=== PATIENT | female | born 1955 | race Caucasian/White ===

== ENCOUNTER 2017-11-07 18:30 | Emergency (ER) | payer BC ==
[2017-11-07 19:07] VITALS: BP 150/82
--- NOTE | 2017-11-07 19:37 | RAD ---
INDICATION: Cough COMPARISON: None TECHNIQUE: PA and lateral dual-energy views were obtained. FINDINGS: Bones/Soft Tissues: There are no acute bony findings. There is osteopenia with kyphosis Cardiomediastinal: The cardiomediastinal silhouette is normal. Lungs: There are no infiltrates. Pleura: There are no pleural effusions. Other: There is partial eventration of the right hemidiaphragm. IMPRESSION: NO ACTIVE DISEASE.
--- NOTE | 2017-11-07 19:55 | UC ---
Respiratory Complaint HPI - HPI Summary HPI Summary: 62 yo female with DM who presents with c/o [address], cough and body aches. She as felt feverish intermittently. Cough is productive. No CP, n/v. had similar symptoms 10d ago which resolved after a course of amoxicillin. - History of Current Complaint Chief Complaint: UCRespiratory Stated Complaint: SORE THROAT Pain Intensity: 5 - Allergies/Home Medications Allergies/Adverse Reactions: Allergies Allergy/AdvReac Type Severity Reaction Status Date / Time Penicillins Allergy Unknown Unknown Verified 11/07/17 19:07 Reaction Details Home Medications: Home Medications Fluoxetine HCl [Prozac] 10 mg PO DAILY 11/07/17 [History Confirmed 11/07/17] Hydrochlorothiazide TAB* [Hydrodiuril TAB*] 12.5 mg PO DAILY 11/07/17 [History Confirmed 11/07/17] Verapamil HCl [Verapamil ER] 240 mg PO DAILY 11/07/17 [History Confirmed ] metFORMIN* [Glucophage 500 MG TAB *] 500 mg PO DAILY 11/07/17 [History Confirmed 11/07/17] PMH/Surg Hx/FS Hx/Imm Hx Endocrine History: Diabetes - Surgical History Surgical History: Yes Surgery Procedure, Year, and Place: HYSTERECTOMY, CHOLECYSTECTOMY - Family History Known Family History: Positive: Diabetes - Social History Alcohol Use: None Substance Use Type: None Smoking Status (MU): Never Smoked Tobacco Review of Systems Constitutional: Fever, Chills Skin: Negative Eyes: Negative ENT: Sore Throat Respiratory: Cough Cardiovascular: Negative Gastrointestinal: Negative Genitourinary: Negative Motor: Negative Neurovascular: Negative Musculoskeletal: Negative Neurological: Negative Psychological: Negative Is Patient Immunocompromised?: No All Other Systems Reviewed And Are Negative: Yes Physical Exam Triage Information Reviewed: Yes Appearance: Well-Appearing Vital Signs: Initial Vital Signs Temp 97.5 F 11/07/17 19:02 Pulse 91 11/07/17 19:02 Resp 18 11/07/17 19:02 BP 150/82 11/07/17 19:02 Pulse Ox 95 11/07/17 19:02 Vital Signs Reviewed: Yes ENT: Positive: Pharyngeal erythema, Tonsillar swelling. Negative: Tonsillar exudate Neck: Positive: Enlarged Nodes @ - anterior cervical LAD Respiratory: Positive: Lungs clear, Normal breath sounds Cardiovascular: Positive: RRR, No Murmur Abdomen Description: Positive: Nontender Musculoskeletal Exam: Normal Neurological Exam: Normal Psychological Exam: Normal Skin Exam: Normal UC Diagnostic Evaluation - Laboratory O2 Sat by Pulse Oximetry: 95 Diagnostic Studies Comment: CXR - NAD Respiratory Course/Dx - Course Course Of Treatment: 62 yo female with 1 week of cough, ST and body aches. Influenza testing negative. CXR shows no infiltrate. Due to length of symptoms , empirically treat with Zpak. - Differential Dx/Diagnosis Differential Diagnosis/HQI/PQRI: Bronchitis, Influenza, Laryngitis Provider Diagnoses: Pharyngitis Discharge - Sign-Out/Discharge Documenting (check all that apply): Discharge/Admit/Transfer - Discharge Plan Condition: Stable Disposition: HOME Prescriptions: Azithromyxin MOHAMUD (NF) [Z-Mohamud (Zithromax) 250 mg tabs #6] 2 tab PO .TODAY, THEN 1 DAILY #6 tab Patient Education Materials: Pharyngitis (ED) Referrals: No Primary Care Phys,NOPCP [Primary Care Provider] - Additional Instructions: Instructions: 1. Take antibiotics as directed 2. May use over the counter decongestants to help with symptoms - Billing Disposition and Condition Condition: STABLE Disposition: HOME
== END 2017-11-07 20:00 | disposition home or self-care (01) ==
LOC: UCEAST 18:30
DX: J02.9 Acute pharyngitis, unspecified (principal); R05 Cough; M79.1 Myalgia; R50.9 Fever, unspecified; Z88.0 Allergy status to penicillin; E11.9 Type 2 diabetes mellitus without complications; Z79.84 Long term (current) use of oral hypoglycemic drugs
CPT/HCPCS: 71046; 87502; 99202; G0463

== ENCOUNTER 2017-12-08 10:12 | Emergency (ER) | payer BC ==
[2017-12-08 10:22] VITALS: BP 152/80
--- NOTE | 2017-12-08 10:39 | ED ---
Skin Complaint - HPI Summary HPI Summary: 62-year-old female presents with rash for the past 2 weeks. The rash is located in left side of her groin. She's never had this rash before. She denies any new products or soaps since. She denies any fevers. She denies any spreading redness. She denies any chills or fatigue. She states the rash has grown a little. She swims twice a week at the [facility]. She lives in the [facility] but denies any recent exposures. She is DM. - History of Current Complaint Pain Intensity: 0 <Radha Thibodeaux - Last Filed: 12/08/17 11:05> <Esther López - Last Filed: 12/08/17 13:45> - History of Current Complaint Chief Complaint: UCSkin Time Seen by Provider: 12/08/17 10:28 Stated Complaint: RASH - Allergy/Home Medications Allergies/Adverse Reactions: Allergies Allergy/AdvReac Type Severity Reaction Status Date / Time Penicillins Allergy Unknown Unknown Verified 12/08/17 10:23 Reaction Details PMH/Surg Hx/FS Hx/Imm Hx Endocrine/Hematology History: Reports: Hx Diabetes Cardiovascular History: Reports: Hx Hypertension - Surgical History Surgery Procedure, Year, and Place: HYSTERECTOMY, CHOLECYSTECTOMY Infectious Disease History: No Infectious Disease History: Denies: Traveled Outside the [place] in Last 30 Days - Family History Known Family History: Positive: Diabetes - Social History Alcohol Use: None Substance Use Type: Reports: None Hx Tobacco Use: No Smoking Status (MU): Never Smoked Tobacco <Radha Thibodeaux - Last Filed: 12/08/17 11:05> Review of Systems Negative: Fever Negative: Chest Pain Negative: Shortness Of Breath Positive: Rash All Other Systems Reviewed And Are Negative: Yes <Radha Thibodeaux - Last Filed: 12/08/17 11:05> Physical Exam Triage Information Reviewed: Yes Vital Signs On Initial Exam: Initial Vitals Temp Pulse Resp BP Pulse Ox 98 F 84 18 152/80 99 12/08/17 10:20 12/08/17 10:20 12/08/17 10:20 12/08/17 10:20 12/08/17 10:20 Vital Signs Reviewed: Yes Appearance: Positive: Well-Appearing Skin: Positive: Warm, Dry, Other - Erythematous rash with scaling to left groin Head/Face: Positive: Normal Head/Face Inspection Eyes: Positive: Normal, Conjunctiva Clear ENT: Positive: Pharynx normal Respiratory/Lung Sounds: Positive: Clear to Auscultation, Breath Sounds Present Cardiovascular: Positive: Normal, RRR Abdomen Description: Positive: Nontender, Soft Bowel Sounds: Positive: Present Musculoskeletal: Positive: Normal Neurological: Positive: Normal Psychiatric: Positive: Normal <Radha Thibodeaux - Last Filed: 12/08/17 11:05> Vital Signs On Initial Exam: Initial Vitals Temp Pulse Resp BP Pulse Ox 98 F 84 18 152/80 99 12/08/17 10:20 12/08/17 10:20 12/08/17 10:20 12/08/17 10:20 12/08/17 10:20 <Esther López - Last Filed: 12/08/17 13:45> Diagnostics - Vital Signs Vital Signs Temp Pulse Resp BP Pulse Ox 12/08/17 10:20 98 F 84 18 152/80 99 <Radha Thibodeaux - Last Filed: 12/08/17 11:05> - Vital Signs Vital Signs Temp Pulse Resp BP Pulse Ox 12/08/17 10:20 98 F 84 18 152/80 99 <Esther López - Last Filed: 12/08/17 13:45> Course/Dx - Course Course Of Treatment: 62-year-old female presents with rash for the past 2 weeks. The rash is located in left side of her groin. She's never had this rash before. She denies any new products or soaps since. She denies any fevers. She denies any spreading redness. She denies any chills or fatigue. She states the rash has grown a little. She swims twice a week at the [facility]. She lives in the [facility] but denies any recent exposures. on exam has erythematous rash with scaling to left groin. most consistent with a tinea. will have treat with clomitrazole. patient blood pressure is in hypertensive range and has dx of such so will have follow up with primary for continue management. patient understand and agrees with plan. - Differential Diagnoses - Skin Complaint Differential Diagnoses: Cellulitis, Contact Dermatitis, Tinea <Radha Thibodeaux - Last Filed: 12/08/17 11:05> <Esther López - Last Filed: 12/08/17 13:45> - Diagnoses Provider Diagnoses: Rash, Hypertension Discharge - Sign-Out/Discharge Documenting (check all that apply): Discharge/Admit/Transfer - Billing Disposition and Condition Condition: GOOD Disposition: Home <Radha Thibodeaux - Last Filed: 12/08/17 11:05> - Billing Disposition and Condition Condition: GOOD Disposition: Home <Esther López - Last Filed: 12/08/17 13:45> - Discharge Plan Condition: Good Disposition: HOME Prescriptions: Clotrimazole 1% CREAM* [Clotrimazole 1%*] 1 applic TOPICAL BID #1 tube Patient Education Materials: Tinea Corporis (ED) Referrals: [facility] [Outside] Additional Instructions: Apply cream twice a day until rash clears Take benadryl every 6 hours as needed for itching Establish care with primary Return to ED if develop any new or worsening symptoms Attestation Statement User Type: Provider - I was available for consult. This patient was seen by the JEANNINE. The patient was not presented to, seen by, or examined by me. -Simon <Esther López - Last Filed: 12/08/17 13:45>
== END 2017-12-08 10:45 | disposition home or self-care (01) ==
LOC: UCEAST 10:12
DX: R21 Rash and other nonspecific skin eruption (principal); E11.9 Type 2 diabetes mellitus without complications; I10 Essential (primary) hypertension; Z88.0 Allergy status to penicillin
CPT/HCPCS: 99212; G0463

== ENCOUNTER 2019-04-08 15:02 | Emergency (ER) | payer BC ==
[2019-04-08 15:12] VITALS: BP 144/86
--- NOTE | 2019-04-08 15:14 | UC ---
Respiratory Complaint HPI - HPI Summary HPI Summary: 63 yo female presents with cough. She tells me that about 12 days ago she developed "cold symptoms" that consisted of sinus congestion, sore throat, and dry cough. She rested and took OTC zinc and her symptoms improved, but her cough remains. She denies fever, chills, SOB, chest pain, n/v. She does not smoke. - History of Current Complaint Chief Complaint: UCRespiratory Stated Complaint: COUGH Time Seen by Provider: 04/08/19 15:14 Hx Obtained From: Patient Severity Initially: Moderate Severity Currently: Mild Pain Intensity: 4 Pain Scale Used: 0-10 Numeric Character: Cough: Nonproductive - Allergies/Home Medications Allergies/Adverse Reactions: Allergies Allergy/AdvReac Type Severity Reaction Status Date / Time Penicillins Allergy Unknown Unknown Verified 04/08/19 15:12 Reaction Details PMH/Surg Hx/FS Hx/Imm Hx Endocrine History: Diabetes Cardiovascular History: Hypertension - Surgical History Surgical History: Yes Surgery Procedure, Year, and Place: HYSTERECTOMY, CHOLECYSTECTOMY - Family History Known Family History: Positive: Diabetes - Social History Lives: With Family Alcohol Use: None Substance Use Type: None Smoking Status (MU): Never Smoked Tobacco Review of Systems All Other Systems Reviewed And Are Negative: No Constitutional: Positive: Negative Skin: Positive: Negative Eyes: Positive: Negative ENT: Positive: Negative Respiratory: Positive: Cough Cardiovascular: Positive: Negative Neurovascular: Positive: Negative Physical Exam - Summary Physical Exam Summary: GENERAL: NAD. WDWN. No pain distress. SKIN: No rashes, sores, lesions, or open wounds. HEENT: Head: AT/NC Eyes: EOM intact. Conjunctiva clear without inflammation or discharge. Ears: Hearing grossly normal. TMs intact, no bulging, erythema, or edema. Nose: Nasal mucosa pink and moist. NTTP maxillary and frontal sinus. Throat: Posterior oropharynx without exudates, erythema, or tonsillar enlargement. Uvula midline. NECK: Supple. Nontender. No lymphadenopathy. CHEST: CTAB. No accessory muscle use. Breathing comfortably and in no distress. CV: RRR. Pulses intact. Cap refill <2seconds NEURO: Alert. PSYCH: Age appropriate behavior. Triage Information Reviewed: Yes Vital Signs: Initial Vital Signs Temp 96.7 F 04/08/19 15:10 Pulse 88 04/08/19 15:10 Resp 16 04/08/19 15:10 BP 144/86 04/08/19 15:10 Pulse Ox 96 04/08/19 15:10 Vital Signs Reviewed: Yes Respiratory Course/Dx - Course Course Of Treatment: Afebrile and lung sounds WNL. Suspect viral illness, but given her length of symptoms and diabetes - will tx with anbx at this time - Differential Dx/Diagnosis Provider Diagnosis: Cough Discharge ED - Sign-Out/Discharge Documenting (check all that apply): Patient Departure All imaging exams completed and their final reports reviewed: No Studies - Discharge Plan Condition: Stable Disposition: HOME Prescriptions: Azithromycin TAB* [Zithromax TAB (Z-MOHAMUD) 250 mg #6 tabs] 2 tab PO .TODAY, THEN 1 DAILY #1 mohamud Benzonatate CAP* [Tessalon 100 MG CAP*] 100 mg PO TID PRN #21 cap PRN Reason: Cough Patient Education Materials: Upper Respiratory Infection (ED) Referrals: Ben Christiansen MD [Primary Care Provider] - Additional Instructions: If you develop a fever, shortness of breath, chest pain, new or worsening symptoms - please call your PCP or go to the ED immediately. Your blood pressure was high at todays visit. Please see your primary provider within 4 weeks for recheck and re-evaluation. Keep your appointment next week with your PCP for a recheck of your symptoms - Billing Disposition and Condition Condition: STABLE Disposition: Home
== END 2019-04-08 15:30 | disposition home or self-care (01) ==
LOC: UCEAST 15:02
DX: R05 Cough (principal); E11.9 Type 2 diabetes mellitus without complications; I10 Essential (primary) hypertension; Z83.3 Family history of diabetes mellitus; Z88.0 Allergy status to penicillin
CPT/HCPCS: 99212; G0463

== ENCOUNTER 2019-04-28 11:43 | Emergency (ER) | payer BC ==
--- OUTSIDE RECORDS SUMMARY | 2019-04-28 11:48 | XMS REPORT | Continuity of Care Document ---
:1955 External Reference #:[id number] Author Name Ben Christiansen MD Address [address] [place] [address] Care Team Providers Name Role Phone Ben Christiansen MD - Family Care Team Information Storage Administrator Medicine Problems Description No Information Available Social History Type Date Description Comments Sex Unknown Tobacco Use Start: Unknown Never Smoked Cigarettes ETOH Use Denies alcohol use Recreational Drug Use Denies Drug Use Tobacco Use Start: Unknown Nonsmoker Smoking Status Reviewed: 04/13/19 Nonsmoker Allergies, Adverse Reactions, Alerts Active Allergies Reaction Severity Comments Date Penicillin 03/28/2018 Medications Active Medications SIG Qnty Indications Ordering Date Provider Verapamil HCL ER 1 by mouth 90tabs Ben TLewis 240mg Tablets ER every day MD Елена Fluoxetine HCL 1 by mouth 90caps Ben TLewis 10mg Capsules every day MD Елена Hydrochlorothiazide 1 by mouth 90tabs Ben Britt 12.5mg Tablets every day MD Елена Metformin HCL Take 1 Tablet 90tabs Daniela Tate 500mg Tablets By Mouth TYRELL Carrillo Every Day Immunizations CPT Code Status Date Vaccine Lot # [id number] Given 04/13/2019 Influenza Vac, Quadrivalent, Slit Virus, Im [id number] Given 03/28/2018 Influenza Virus Vaccine, Recombinant Dna, [id number] Hemagglutnin Protein On Vital Signs Date Vital Result Comment 04/13/2019 9:44am BP Systolic 152 mmHg BP Diastolic 82 mmHg Heart Rate 92 /min Body Temperature 97.3 F Height 61 inches 5'1" Weight 221.00 lb BMI (Body Mass Index) 41.8 kg/m2 08/14/2018 2:18pm BP Systolic 146 mmHg BP Diastolic 104 mmHg Heart Rate 102 /min Body Temperature 97.2 F Respiratory Rate 16 /min Height 60 inches 5'0" Weight 226.00 lb BMI (Body Mass Index) 44.1 kg/m2 Results Test Date Facility Test Result H/L Range Note Laboratory test 04/13/2019 [facility] Hemoglobin A1c 6.6 % % High 4.1-5.7 finding (607)- - (Fma) Procedures Date Code Description Status 05/25/2018 [id number] Mammogram Completed 04/24/2018 [id number] Mammogram Completed 04/24/2017 [id number] Mammogram Completed 2015 [id number] Colonoscopy Completed Medical Devices Description No Information Available Encounters Description No Information Available Assessments Date Code Description Provider 04/13/2019 Z00.00 Encounter for general adult medical Ben Christiansen MD examination without abnormal findings 04/13/2019 E11.9 Type 2 diabetes mellitus without Ben Christiansen MD complications 04/13/2019 Z12.31 Encounter for screening mammogram for Ben Christiansen MD malignant neoplasm of breast Plan of Treatment 04/13/2019 - Ben Christiansen MDZ00.00 Encounter for general adult medical examination without abnormal [id number] Type 2 diabetes mellitus without [id number] Encounter for screening mammogram for malignant neoplasm of breastAllComments:Medication Management Patient Understands medications she's taking? Yes No Are there Barriers to Adherence? Yes No Has the patient been asked about herbal supplements and therapies, and OTC meds? Yes No Functional Status Description No Information Available Mental Status Description No Information Available Referrals Description No Information Available
[2019-04-28 12:01] VITALS: BP 137/59
--- NOTE | 2019-04-28 13:08 | UC ---
Respiratory Complaint HPI - HPI Summary HPI Summary: reports she started to cough 6 weeks ago was treated with antibiotic and felt better but never fully resolved. saw PCP and tried Tesselon perles w/o relief today she reports continued dry cough, nasal congestion with left sided pressure no CP/SOB, but cough worsens with activity - History of Current Complaint Chief Complaint: UCGeneralIllness Stated Complaint: COUGH Time Seen by Provider: 04/28/19 12:43 Hx Obtained From: Patient ?: No Onset/Duration: Gradual Onset Severity Initially: Mild Severity Currently: Mild Pain Intensity: 3 Aggravating Factors: Deep Breaths, Recumbent Position Alleviating Factors: Upright Position Associated Signs And Symptoms: Positive: Nasal Congestion, Sinus Discomfort. Negative: Fever, Wheezing, Hemoptysis - Allergies/Home Medications Allergies/Adverse Reactions: Allergies Allergy/AdvReac Type Severity Reaction Status Date / Time Penicillins Allergy Unknown Unknown Verified 04/28/19 11:52 Reaction Details Home Medications: Home Medications Ascorbic Acid TAB* [Vitamin C TAB*] 1 tab PO DAILY 04/28/19 [History Confirmed 04/28/19] Dm/Acetaminophen/Doxylamine [Nighttime Cold and Flu Liquid] 30 ml PO ONCE [History Confirmed 04/28/19] Zinc 1 tab PO DAILY 04/28/19 [History Confirmed 04/28/19] PMH/Surg Hx/FS Hx/Imm Hx Previously Healthy: Yes Endocrine History: Diabetes Cardiovascular History: Hypertension Psychological History: Depression - Surgical History Surgical History: Yes Surgery Procedure, Year, and Place: HYSTERECTOMY. CHOLECYSTECTOMY. R KNEE - Family History Known Family History: Positive: Diabetes - Social History Occupation: Retired Lives: With Family Alcohol Use: None Substance Use Type: None Smoking Status (MU): Never Smoked Tobacco Review of Systems All Other Systems Reviewed And Are Negative: Yes Constitutional: Positive: Negative Skin: Positive: Negative. Negative: Rash Respiratory: Positive: Cough. Negative: Shortness Of Breath Cardiovascular: Positive: Negative Neurological: Positive: Negative Psychological: Positive: Negative Is Patient Immunocompromised?: No Physical Exam Triage Information Reviewed: Yes Appearance: Well-Appearing, No Pain Distress, Obese Vital Signs: Initial Vital Signs Temp 97.9 F 04/28/19 11:54 Pulse 91 04/28/19 11:54 Resp 18 04/28/19 11:54 BP 137/59 04/28/19 11:54 Pulse Ox 98 04/28/19 11:54 Vital Signs Reviewed: Yes Eye Exam: Normal ENT: Positive: Nasal congestion, Sinus tenderness - L MAXILLARY, Other - PND Neck: Positive: No Lymphadenopathy Respiratory Exam: Normal Respiratory: Positive: Lungs clear - light dry cough after deep breaths Cardiovascular Exam: Normal Cardiovascular: Positive: RRR Psychological Exam: Normal Skin Exam: Normal Skin: Negative: Rashes Diagnostics - Radiology No standard instances Radiology Interpretation Completed By: Radiologist - normal CXR Respiratory Course/Dx - Differential Dx/Diagnosis Differential Diagnosis/HQI/PQRI: Bronchitis, Lower Resp Infection, Sinusitis Provider Diagnosis: Sinusitis Discharge ED - Sign-Out/Discharge Documenting (check all that apply): Patient Departure All imaging exams completed and their final reports reviewed: Yes - normal chest exam - Discharge Plan Condition: Good Disposition: HOME Prescriptions: Cefdinir cap* [Cefdinir 300 MG cap (NF)] 300 mg PO BID #20 cap Patient Education Materials: Sinusitis (ED) Referrals: Ben Christiansen MD [Primary Care Provider] - 3 Days (for recheck) Additional Instructions: drink plenty of fluids use Claritin (over the counter) for post nasal drip start antibiotic and take as directed - Billing Disposition and Condition Condition: GOOD Disposition: Home
== END 2019-04-28 13:50 | disposition home or self-care (01) ==
LOC: UCEAST 11:43
DX: J32.9 Chronic sinusitis, unspecified (principal); E11.9 Type 2 diabetes mellitus without complications; I10 Essential (primary) hypertension; Z88.0 Allergy status to penicillin
CPT/HCPCS: 71046; 99212; G0463